=== PATIENT | male | born 1960 | race Hispanic/Latino ===

== ENCOUNTER 2019-02-06 19:35 | Emergency (ER) | payer OTHER ==
--- NOTE | 2019-02-06 20:04 | Emergency Department Report ---
Blank Doc - Documentation Documentation: This is a 58-year-old male that presents with chest pain with SOB. Stated feels like a crushing chest and tightness. HX of ND with similar symptoms. This initial assessment/diagnostic orders/clinical plan/treatment(s) is/are subject to change based on patient's health status, clinical progression and re- assessment by fellow clinical providers in the ED. Further treatment and workup at subsequent clinical providers discretion. Patient/guardians urged not to elope from the ED as their condition may be serious if not clinically assessed and managed. Initial orders include: 1- Patient sent to MAIN ED for further evaluation and treatment 2- EKG 3- labs 4- CXR
[2019-02-06 20:19] LABS: Basophils # (Auto) 0.1 K/mm3 (0.0-0.1); Basophils % (Auto) 1.4 % (0.0-1.8); Eosinophils # (Auto) 0.3 K/mm3 (0.0-0.4); Eosinophils % (Auto) 3.7 % (0.0-4.3); Hematocrit 46.1 % (35.5-45.6); Hemoglobin 16.1 gm/dl (11.8-15.2); Lymphocytes # (Auto) 1.9 K/mm3 (1.2-5.4); Lymphocytes % (Auto) 22.2 % (13.4-35.0); Mean Corpuscular HGB Conc 35 % (32-34); Mean Corpuscular Volume 89 fl (84-94); Monocytes % (Auto) 11.4 % (0.0-7.3); Platelet Count 295 K/mm3 (140-440); Red Blood Count 5.17 M/mm3 (3.65-5.03); Red Cell Distribution Width 13.7 % (13.2-15.2)
[2019-02-06 20:35] LABS: INR 0.97 (0.87-1.13)
[2019-02-06 20:36] LABS: Partial Thromboplastin Time 29.5 Sec. (24.2-36.6)
[2019-02-06 20:48] LABS: Alanine Aminotransferase 39 units/L (7-56); Albumin 3.9 g/dL (3.9-5); BUN/Creatinine Ratio 13; Blood Urea Nitrogen 10 mg/dL (9-20); Calcium 9.4 mg/dL (8.4-10.2); Hemolysis Index 19
--- NOTE | 2019-02-06 21:20 | XRay Report ---
PROCEDURE: XR CHEST ROUTINE 2V TECHNIQUE: PA and lateral views of the chest HISTORY: Chest Pain COMPARISONS: Chest x-ray dated October 28, 2018 FINDINGS: There is prominence of the interstitial markings in both lungs with peribronchial thickening similar in appearance to the previous study. There is no evidence of focal infiltrate, pneumothorax or pleural fluid collection. There is a stable appearance of a probable small calcified granuloma in the right upper lung field. The cardiac silhouette is normal size. The thoracic aorta is mildly tortuous. The bony structures are notable for dextrocurvature of the thoracic spine similar in appearance to th e previous study. IMPRESSION: 1. Prominence of the interstitial markings with peribronchial thickening that appears to be chronic a nd not significantly changed since the study of October 28, 2018. 2. No evidence of an acute pulmonary process. This document is electronically signed by Zaira Slaughter MD., February 06 2019 09:18:47 PM ET
[2019-02-07] MEDS ORDERED: HEPARIN 10,000 UNITS/10 ML IV ONE (01:09)
--- NOTE | 2019-02-07 01:17 | Emergency Department Report ---
ED General Adult HPI - General Chief complaint: Chest Pain Stated complaint: CHEST PAIN Time Seen by Provider: 02/06/19 20:02 Source: patient Mode of arrival: Ambulatory Limitations: No Limitations - History of Present Illness Initial comments: Patient presents to the emergency department with a chief complaint of intermittent chest pain for the last 3 months. The patient states at times the chest pain radiates into his left arm and describes it as pressure-like. Chest pain has become more prominent with exertion. The patient was seen at [facility] October for chest pain and was admitted and transferred to [facility] for open heart surgery. Upon arriving at [facility] the patient became restless and left AMA. -: Gradual Location: chest Radiation: extremity Severity scale (0 -10): 9 Quality: other (pressure) Consistency: intermittent Improves with: none Worsens with: other (exertion) Associated Symptoms: denies other symptoms Treatments Prior to Arrival: none - Related Data Previous Rx's Medication Instructions Recorded Last Taken Type Aspirin [Aspirin BABY CHEW TAB] 81 mg PO QDAY #30 tab.chew 12/25/14 10/23/18 Rx AtorvaSTATin [Lipitor] 40 mg PO QHS tablet 10/29/18 Unknown Rx Clopidogrel [Plavix] 75 mg PO QDAY tablet 10/29/18 Unknown Rx Enoxaparin [Lovenox] 40 mg SUB-Q QDAY@2200 syringe 10/29/18 Unknown Rx ISOSORBIDE MONOnitrate [Imdur ER] 30 mg PO QDAY tablet 10/29/18 Unknown Rx Lisinopril [Zestril TAB] 2.5 mg PO QDAY tablet 10/29/18 Unknown Rx Allergies Allergy/AdvReac Type Severity Reaction Status Date / Time No Known Allergies Allergy Verified 12/21/14 14:40 ED Review of Systems ROS: Stated complaint: CHEST PAIN Other details as noted in HPI Comment: All other systems reviewed and negative Constitutional: denies: chills, fever Eyes: denies: eye pain, eye discharge, vision change ENT: denies: ear pain, throat pain Respiratory: denies: cough, shortness of breath, wheezing Cardiovascular: denies: chest pain, palpitations Endocrine: no symptoms reported Gastrointestinal: denies: abdominal pain, nausea, diarrhea Genitourinary: denies: urgency, dysuria Musculoskeletal: denies: back pain, joint swelling, arthralgia Skin: denies: rash, lesions Neurological: denies: headache, weakness, paresthesias Psychiatric: denies: anxiety, depression Hematological/Lymphatic: denies: easy bleeding, easy bruising ED Past Medical Hx - Past Medical History Hx Heart Attack/AMI: Yes Hx Congestive Heart Failure: No Hx Diabetes: No Hx Asthma: No Hx COPD: No Additional medical history: [place] 2013 - Surgical History Hx Appendectomy: Yes - Social History Smoking Status: Current Every Day Smoker Substance Use Type: None - Medications Home Medications: Home Medications Medication Instructions Recorded Confirmed Last Taken Type Aspirin [Aspirin BABY CHEW TAB] 81 mg PO QDAY #30 tab.chew 12/25/14 10/24/18 10/23/18 Rx AtorvaSTATin [Lipitor] 40 mg PO QHS tablet 10/29/18 Unknown Rx Clopidogrel [Plavix] 75 mg PO QDAY tablet 10/29/18 Unknown Rx Enoxaparin [Lovenox] 40 mg SUB-Q QDAY@2200 syringe 10/29/18 Unknown Rx ISOSORBIDE MONOnitrate [Imdur ER] 30 mg PO QDAY tablet 10/29/18 Unknown Rx Lisinopril [Zestril TAB] 2.5 mg PO QDAY tablet 10/29/18 Unknown Rx ED Physical Exam - General Limitations: No Limitations General appearance: alert, in no apparent distress - Head Head exam: Present: atraumatic, normocephalic - Eye Eye exam: Present: normal appearance, PERRL, EOMI - ENT ENT exam: Present: mucous membranes moist - Neck Neck exam: Present: normal inspection - Respiratory Respiratory exam: Present: normal lung sounds bilaterally. Absent: respiratory distress, wheezes, rales, rhonchi - Cardiovascular Cardiovascular Exam: Present: regular rate, normal rhythm. Absent: systolic murmur, diastolic murmur, rubs, gallop - GI/Abdominal GI/Abdominal exam: Present: soft, normal bowel sounds. Absent: distended, tenderness - Rectal Rectal exam: Present: deferred - Extremities Exam Extremities exam: Present: normal inspection - Back Exam Back exam: Present: normal inspection - Neurological Exam Neurological exam: Present: alert, oriented X3, CN II-XII intact. Absent: motor sensory deficit - Psychiatric Psychiatric exam: Present: normal affect, normal mood - Skin Skin exam: Present: warm, dry, intact, normal color. Absent: rash ED Course Vital Signs 02/06/19 02/06/19 02/06/19 19:46 20:02 23:02 Temperature 97.6 F 97.6 F Pulse Rate 79 83 65 Respiratory 18 18 14 Rate Blood Pressure 112/77 112/77 O2 Sat by Pulse 95 95 Oximetry 02/06/19 02/06/19 02/06/19 23:16 23:30 23:46 Temperature Pulse Rate 60 60 76 Respiratory 19 16 19 Rate Blood Pressure 123/78 114/70 114/70 O2 Sat by Pulse 94 93 95 Oximetry ED Medical Decision Making - Lab Data Result diagrams: 02/06/19 20:06 02/06/19 20:06 Lab Results 02/06/19 02/06/19 02/06/19 Range/Units 20:06 20:06 20:06 WBC 8.7 (4.5-11.0) K/mm3 RBC 5.17 H (3.65-5.03) M/mm3 Hgb 16.1 H (11.8-15.2) gm/dl Hct 46.1 H (35.5-45.6) % MCV 89 (84-94) fl MCH 31 (28-32) pg MCHC 35 H (32-34) % RDW 13.7 (13.2-15.2) % Plt Count 295 (140-440) K/mm3 Lymph % (Auto) 22.2 (13.4-35.0) % [place] % (Auto) 11.4 H (0.0-7.3) % Eos % (Auto) 3.7 (0.0-4.3) % Baso % (Auto) 1.4 (0.0-1.8) % Lymph # 1.9 (1.2-5.4) K/mm3 [place] # 1.0 H (0.0-0.8) K/mm3 Eos # 0.3 (0.0-0.4) K/mm3 Baso # 0.1 (0.0-0.1) K/mm3 Seg Neutrophils % 61.3 (40.0-70.0) % Seg Neutrophils # 5.3 (1.8-7.7) K/mm3 PT 13.5 (12.2-14.9) Sec. INR 0.97 (0.87-1.13) APTT 29.5 (24.2-36.6) Sec. Sodium 135 L (137-145) mmol/L Potassium 4.0 (3.6-5.0) mmol/L Chloride 102.0 (98-107) mmol/L Carbon Dioxide 21 L (22-30) mmol/L Anion Gap 16 mmol/L BUN 10 (9-20) mg/dL Creatinine 0.8 (0.8-1.5) mg/dL Estimated GFR > 60 ml/min BUN/Creatinine Ratio 13 % Glucose 101 H (75-100) mg/dL Calcium 9.4 (8.4-10.2) mg/dL Total Bilirubin 0.90 (0.1-1.2) mg/dL AST 31 (5-40) units/L ALT 39 (7-56) units/L Alkaline Phosphatase 62 (35-129) units/L Troponin T < 0.010 (0.00-0.029) ng/mL Total Protein 7.6 (6.3-8.2) g/dL Albumin 3.9 (3.9-5) g/dL Albumin/Globulin Ratio 1.1 % // Range/Units 22:51 WBC (4.5-11.0) K/mm3 RBC (3.65-5.03) M/mm3 Hgb (11.8-15.2) gm/dl Hct (35.5-45.6) % MCV (84-94) fl MCH (28-32) pg MCHC (32-34) % RDW (13.2-15.2) % Plt Count (140-440) K/mm3 Lymph % (Auto) (13.4-35.0) % [place] % (Auto) (0.0-7.3) % Eos % (Auto) (0.0-4.3) % Baso % (Auto) (0.0-1.8) % Lymph # (1.2-5.4) K/mm3 [place] # (0.0-0.8) K/mm3 Eos # (0.0-0.4) K/mm3 Baso # (0.0-0.1) K/mm3 Seg Neutrophils % (40.0-70.0) % Seg Neutrophils # (1.8-7.7) K/mm3 PT (12.2-14.9) Sec. INR (0.87-1.13) APTT (24.2-36.6) Sec. Sodium (137-145) mmol/L Potassium (3.6-5.0) mmol/L Chloride (98-107) mmol/L Carbon Dioxide (22-30) mmol/L Anion Gap mmol/L BUN (9-20) mg/dL Creatinine (0.8-1.5) mg/dL Estimated GFR ml/min BUN/Creatinine Ratio % Glucose (75-100) mg/dL Calcium (8.4-10.2) mg/dL Total Bilirubin (0.1-1.2) mg/dL AST (5-40) units/L ALT (7-56) units/L Alkaline Phosphatase (35-129) units/L Troponin T < 0.010 (0.00-0.029) ng/mL Total Protein (6.3-8.2) g/dL Albumin (3.9-5) g/dL Albumin/Globulin Ratio % - EKG Data -: EKG Interpreted by Dc EKG shows normal: sinus rhythm Rate: normal - EKG Data 02/07/19 01:[address] depression of the lateral leads patient did have some ST depressions in lateral leads in October as well - Radiology Data Radiology results: [place] [address] XRay Report Signed Patient: HALI AGUILERA MR#: [id number] 38 : 1960 Acct:[id number] Age/Sex: 58 / M ADM Date: 02/06/19 Loc: ED Attending Dr: Ordering Physician: ERNESTO BEST NP Date of Service: 02/06/19 Procedure(s): XR chest routine 2V Accession Number(s): [id number] cc: ERNESTO BEST NP Fluoro Time In Minutes: PROCEDURE: XR CHEST ROUTINE 2V TECHNIQUE: PA and lateral views of the chest HISTORY: Chest Pain COMPARISONS: Chest x-ray dated October 28, 2018 FINDINGS: There is prominence of the interstitial markings in both lungs with peribronchial thickening similar in appearance to the previous study. There is no evidence of focal infiltrate, pneumothorax or pleural fluid collection. There is a stable appearance of a probable small calcified granuloma in the right upper lung field. The cardiac silhouette is normal size. The thoracic aorta is mildly tortuous. The bony structures are notable for dextrocurvature of the thoracic spine similar in appearance to the previous study. IMPRESSION: 1. Prominence of the interstitial markings with peribronchial thickening that appears to be chronic and not significantly changed since the study of October 28, 2018. 2. No evidence of an acute pulmonary process. This document is electronically signed by Zaira Slaughter MD., February 06 2019 09:18:47 PM ET Transcribed By: ED Dictated By: ZAIRA SLAUGHTER MD Electronically Authenticated By: ZAIRA SLAUGHTER MD Signed Date/Time: 02/06/192119 DD/ 27 TD/TT: 02/06/192027 - Medical Decision Making Catheterization report review shows multi vessel coronary artery disease with an ejection fraction of 20-25% Discussed results with the patient Patient placed on heparin drip Initially attempted to admit the patient to the hospitalist service at this hospital assisted patient has pre-existing coronary artery disease and was being evaluated by CT surgery for open heart surgery it was discussed that the patient should be transferred back to the facility where his CT surgery was being planned. At this time I contacted [facility] and patient was accepted via Critical Care Time: Yes Critical care time in (mins) excluding proc time.: 45 Critical care attestation.: If time is entered above; I have spent that time in minutes in the direct care of this critically ill patient, excluding procedure time. ED Disposition Clinical Impression: Chest pain Disposition: DC/TX-70 ANOTHER TYPE HLTHCARE Is pt being admited?: No Does the pt Need Aspirin: Yes Condition: Stable Instructions: Chest Pain (ED) Referrals: AUGIE SOLIS MD [Primary Care Provider] - 3-5 Days
[2019-02-07] MEDS ORDERED: BABY ASPIRIN PO ONE (01:20)
[2019-02-07 01:44] LABS: Hematocrit 44.7 % (35.5-45.6); Hemoglobin 15.3 gm/dl (11.8-15.2)
[2019-02-07] MEDS ORDERED: HEPARIN/ 0.45% NACL-25,000 UNIT/500 ML 25,000 UNIT/500 ML BAG IV SCH (02:00)
[2019-02-07 02:05] LABS: Partial Thromboplastin Time 29.6 Sec. (24.2-36.6)
[2019-02-07 02:15] VITALS: BP 133/90
== END 2019-02-07 03:01 | disposition other institution (70) ==
LOC: ED 19:35
DX: R07.89 Other chest pain (principal); I25.2 Old myocardial infarction; F17.200 Nicotine dependence, unspecified, uncomplicated; Z90.89 Acquired absence of other organs
CPT/HCPCS: 36415; 71046; 80053; 84484; 85014; 85018; 85025; 85049; 85610; 85730; 93005; 93010; 96374; 99291; J1644

== ENCOUNTER 2019-04-21 16:58 | Inpatient (IN) | payer OTHER ==
[2019-04-21] MEDS ORDERED: ASPIRIN PO ONE (17:04)
[2019-04-21 17:56] LABS: Basophils # (Auto) 0.1 K/mm3 (0.0-0.1); Basophils % (Auto) 0.9 % (0.0-1.8); Eosinophils # (Auto) 0.5 K/mm3 (0.0-0.4); Eosinophils % (Auto) 4.9 % (0.0-4.3); Hemoglobin 14.1 gm/dl (11.8-15.2); Lymphocytes # (Auto) 3.3 K/mm3 (1.2-5.4); Lymphocytes % (Auto) 35.7 % (13.4-35.0); Mean Corpuscular HGB Conc 33 % (32-34); Mean Corpuscular Volume 90 fl (84-94); Monocytes # (Auto) 1.1 K/mm3 (0.0-0.8); Monocytes % (Auto) 11.9 % (0.0-7.3); Platelet Count 335 K/mm3 (140-440); Red Cell Distribution Width 18.6 % (13.2-15.2)
[2019-04-21 18:05] LABS: BUN/Creatinine Ratio 13; Blood Urea Nitrogen 9 mg/dL (9-20); Calcium 10.1 mg/dL (8.4-10.2); Hemolysis Index 12
[2019-04-21] MEDS ORDERED: NITRO-BID 2% TP ONE (18:23)
--- NOTE | 2019-04-21 19:00 | XRay Report ---
PROCEDURE: XR CHEST 1V AP TECHNIQUE: Chest radiograph single view. HISTORY: Chest Pain COMPARISONS: Prior chest x-ray 02/06/2019 . FINDINGS: Heart: Normal size. Mediastinum/Vessels: Normal. Sternotomy wires are now visualized. There has been interval thoracotomy . Lungs/Pleural space: Calcified granulomas suspected right upper lung field. This is seen in the prio r study.. Bony thorax: No acute osseous abnormality. There is mild blunting of the right and left lateral costo phrenic angle suggesting minimal effusions or pleural thickening. No dense consolidations are seen. N o evidence of pneumothorax. Life support devices: None. IMPRESSION: Interval thoracotomy. Prior granulomatous disease. Minimal blunting lateral costophrenic angles as described above. Lungs otherwise are clear.. This document is electronically signed by Alejandro Dhillon MD., April 21 2019 06:58:57 PM ET
[2019-04-21 19:19] LABS: INR 1.05 (0.87-1.13)
[2019-04-21 19:20] LABS: Partial Thromboplastin Time 30.5 Sec. (24.2-36.6)
[2019-04-21] MEDS ORDERED: ASPIRIN ONE (19:42)
--- NOTE | 2019-04-21 19:52 | Emergency Department Report ---
ED Chest Pain HPI - General Chief Complaint: Chest Pain Stated Complaint: CHEST PAIN/VOMIT BLOOD Time Seen by Provider: 04/21/19 17:52 Source: patient, RN notes reviewed, old records reviewed Mode of arrival: Ambulatory Limitations: No Limitations - History of Present Illness Initial Comments: 58-year-old male with a past medical history of CABG 4 in January, cardiac stent, hypertension, ischemic cardiomyopathy with EF of 25-30%, and continue smoking/ tobacco use presents to the hospital with complaints of chest pain and coughing of blood (denies vomiting blood). Patient was seen here in January and emergently was transferred to [place] for CABG for significant CAD. Patient states when his medications ran out he did not have any more refills and has not had any medications for the last 6-8 weeks. He has taken aspirin 81 mg daily. 2 weeks ago he reports that he had a set of onset of chest pain similar to his previous heart attacks. Pain resolved the next day so he did not come to the hospital. For the past week he has had intermittent chest pain and and has had several episodes of hemoptysis since yesterday. Patient also has not followed up with a radiology clerk or primary care doctor as directed since he was last seen by the cardiothoracic surgeon. Patient has been seen by [facility] here in the past. Severity scale (0 -10): 9 - Related Data Home Medications Medication Instructions Recorded Confirmed Last Taken No Known Home Medications [No 04/21/19 04/21/19 Unknown Reported Home Medications] Allergies Allergy/AdvReac Type Severity Reaction Status Date / Time No Known Allergies Allergy Verified 04/21/19 17:04 Heart Score - HEART Score History: Slightly suspicious EKG: Non-specific Age: 45-65 Risk factors: > 3 risk factors or hx of atherosclerotic disease Troponin: < normal limit HEART Score: 4 ED Review of Systems ROS: Stated complaint: CHEST PAIN/VOMIT BLOOD Other details as noted in HPI Comment: All other systems reviewed and negative ED Past Medical Hx - Past Medical History Hx Heart Attack/AMI: Yes Hx Congestive Heart Failure: No Hx Diabetes: No Hx Asthma: No Hx COPD: No Additional medical history: [place] 2013 - Surgical History Hx Appendectomy: Yes - Social History Smoking Status: Current Every Day Smoker Substance Use Type: None - Medications Home Medications: Home Medications Medication Instructions Recorded Confirmed Last Taken Type No Known Home Medications [No 04/21/19 04/21/19 Unknown History Reported Home Medications] ED Physical Exam - General Limitations: No Limitations - Other Other exam information: General: No limitations, patient is alert in no acute distress Head exam: Atraumatic, normocephalic Eyes exam: Normal appearance ENT: Moist mucous membrane, normal oropharynx Neck exam: Normal inspection, full range of motion, no meningismus nontender Respiratory exam: Clear to auscultation bilateral, no wheezes, rales, crackles, sternotomy scar Cardiovascular: Normal rate and rhythm Abdomen: Soft, nondistended, and nontender, with normal bowel sounds, no rebound, or guarding Extremity: Full range of motion normal inspection no deformity Back: Normal Inspection, full range of motion, no tenderness Neurologic: Alert, oriented x3, cranial nerves intact, no motor or sensory deficit Psychiatric: normal affect, normal mood Skin: Warm, dry, intact ED Course Vital Signs 04/21/19 04/21/19 04/21/19 17:03 18:28 18:30 Temperature 98.2 F Pulse Rate 102 H 84 81 Respiratory 20 14 16 Rate Blood Pressure 180/112 158/104 158/104 Blood Pressure [Left] O2 Sat by Pulse 93 98 Oximetry 04/21/19 04/21/19 04/21/19 18:36 18:43 18:45 Temperature 98.1 F Pulse Rate 83 80 79 Respiratory 15 15 16 Rate Blood Pressure 158/104 Blood Pressure 166/94 [Left] O2 Sat by Pulse 98 98 97 Oximetry 04/21/19 04/21/19 04/21/19 18:46 18:51 18:55 Temperature Pulse Rate 75 81 Respiratory 18 16 19 Rate Blood Pressure 166/97 Blood Pressure [Left] O2 Sat by Pulse 98 97 96 Oximetry 04/21/19 04/21/19 04/21/19 19:01 19:05 19:11 Temperature Pulse Rate 81 84 76 Respiratory 14 20 15 Rate Blood Pressure 166/97 166/97 152/98 Blood Pressure [Left] O2 Sat by Pulse 97 97 98 Oximetry 04/21/19 04/21/19 04/21/19 19:15 19:33 19:35 Temperature Pulse Rate 78 91 H 86 Respiratory 18 16 35 H Rate Blood Pressure 152/98 152/98 152/98 Blood Pressure [Left] O2 Sat by Pulse 98 99 99 Oximetry 04/21/19 04/21/19 04/21/19 19:41 19:45 19:51 Temperature Pulse Rate 83 86 91 H Respiratory 32 H 38 H 35 H Rate Blood Pressure 148/101 148/101 148/101 Blood Pressure [Left] O2 Sat by Pulse 96 98 96 Oximetry 04/21/19 04/21/19 04/21/19 19:55 20:01 20:05 Temperature Pulse Rate 85 82 88 Respiratory 34 H 27 H 31 H Rate Blood Pressure 155/96 155/96 155/96 Blood Pressure [Left] O2 Sat by Pulse 97 96 97 Oximetry 04/21/19 20:11 Temperature Pulse Rate 85 Respiratory 25 H Rate Blood Pressure 152/98 Blood Pressure [Left] O2 Sat by Pulse 96 Oximetry CRISSY score - Crissy Score Age > 65: (0) No Aspirin use within the Past 7 Days: (1) Yes 3 or more CAD Risk Factors: (1) Yes 2 or more Angina events in past 24 hrs: (0) No Known CAD with more than 50% Stenosis: (1) Yes Elevated Cardiac Markers: (0) No ST Deviation Greater than 0.5mm: (0) No CRISSY Score: 3 ED Medical Decision Making - Lab Data Result diagrams: 04/21/19 17:07 04/21/19 17:07 Lab Results 04/21/19 04/21/19 04/21/19 Range/Units 17:07 17:07 18:20 WBC 9.3 (4.5-11.0) K/mm3 RBC 4.80 (3.65-5.03) M/mm3 Hgb 14.1 (11.8-15.2) gm/dl Hct 43.0 (35.5-45.6) % MCV 90 (84-94) fl MCH 29 (28-32) pg MCHC 33 (32-34) % RDW 18.6 H (13.2-15.2) % Plt Count 335 (140-440) K/mm3 Lymph % (Auto) 35.7 H (13.4-35.0) % [place] % (Auto) 11.9 H (0.0-7.3) % Eos % (Auto) 4.9 H (0.0-4.3) % Baso % (Auto) 0.9 (0.0-1.8) % Lymph # 3.3 (1.2-5.4) K/mm3 [place] # 1.1 H (0.0-0.8) K/mm3 Eos # 0.5 H (0.0-0.4) K/mm3 Baso # 0.1 (0.0-0.1) K/mm3 Seg Neutrophils % 46.6 (40.0-70.0) % Seg Neutrophils # 4.4 (1.8-7.7) K/mm3 PT 14.3 (12.2-14.9) Sec. INR 1.05 (0.87-1.13) APTT 30.5 (24.2-36.6) Sec. Sodium 139 (137-145) mmol/L Potassium 4.1 (3.6-5.0) mmol/L Chloride 100.3 (98-107) mmol/L Carbon Dioxide 24 (22-30) mmol/L Anion Gap 19 mmol/L BUN 9 (9-20) mg/dL Creatinine 0.7 L (0.8-1.5) mg/dL Estimated GFR > 60 ml/min BUN/Creatinine Ratio 13 % Glucose 138 H (75-100) mg/dL Calcium 10.1 (8.4-10.2) mg/dL Troponin T < 0.010 (0.00-0.029) ng/mL 04/21/19 Range/Units 19:45 WBC (4.5-11.0) K/mm3 RBC (3.65-5.03) M/mm3 Hgb (11.8-15.2) gm/dl Hct (35.5-45.6) % MCV (84-94) fl MCH (28-32) pg MCHC (32-34) % RDW (13.2-15.2) % Plt Count (140-440) K/mm3 Lymph % (Auto) (13.4-35.0) % [place] % (Auto) (0.0-7.3) % Eos % (Auto) (0.0-4.3) % Baso % (Auto) (0.0-1.8) % Lymph # (1.2-5.4) K/mm3 [place] # (0.0-0.8) K/mm3 Eos # (0.0-0.4) K/mm3 Baso # (0.0-0.1) K/mm3 Seg Neutrophils % (40.0-70.0) % Seg Neutrophils # (1.8-7.7) K/mm3 PT (12.2-14.9) Sec. INR (0.87-1.13) APTT (24.2-36.6) Sec. Sodium (137-145) mmol/L Potassium (3.6-5.0) mmol/L Chloride (98-107) mmol/L Carbon Dioxide (22-30) mmol/L Anion Gap mmol/L BUN (9-20) mg/dL Creatinine (0.8-1.5) mg/dL Estimated GFR ml/min BUN/Creatinine Ratio % Glucose (75-100) mg/dL Calcium (8.4-10.2) mg/dL Troponin T < 0.010 (0.00-0.029) ng/mL - EKG Data -: EKG Interpreted by N[facility] EKG shows normal: sinus rhythm, axis (qrs 52), QRS complexes (qrsd 94 ), ST-T waves (no stemi) Rate: normal (88) - EKG Data When compared to previous EKG there are: no significant change - Radiology Data Radiology results: report reviewed PROCEDURE: CT ANGIO CHEST TECHNIQUE: Computerized tomographic angiography of the chest was performed after the IV injection of iodinated nonionic contrast including image processing. The image data was postprocessed using 2-dimensional multiplanar reformatted (MPR) and 3-dimensional (MIP and/or volume rendered) techniques. Automated exposure control, adjustment of mA and/or kV according to patient size, or iterative reconstruction dose optimization techniques were utilized. CT DOSE LENGTH PRODUCT: 538.3 mGycm HISTORY: cp, coughing up blood, cabg 12 wks ago COMPARISONS: None . FINDINGS: Contrast-enhanced CT angiography of the chest was performed following the intravenous administration of iodinated contrast. Sagittal and coronal MIP three-dimensional reformatted images were generated. These images demonstrate no CT evidence of pulmonary thromboembolic disease. There is no aortic dissection. There is cardiomegaly. Sternal wires attest prior sternotomy. There is some stranding and trace fluid posterior to the upper sternum which is likely postprocedural. No loculated fluid collection is seen. There is a small right pleural effusion. There is mild COPD. There is no acute consolidative pulmonary infiltrate. There is a right upper lobe calcified granuloma. In the upper abdomen the adrenal glands are within normal limits. IMPRESSION: No CT evidence of pulmonary thromboembolic disease PROCEDURE: XR CHEST 1V AP TECHNIQUE: Chest radiograph single view. HISTORY: Chest Pain COMPARISONS: Prior chest x-ray 02/06/2019 . FINDINGS: Heart: Normal size. Mediastinum/Vessels: Normal. Sternotomy wires are now visualized. There has been interval thoracotomy. Lungs/Pleural space: Calcified granulomas suspected right upper lung field. This is seen in the prior study.. Bony thorax: No acute osseous abnormality. There is mild blunting of the right and left lateral costophrenic angle suggesting minimal effusions or pleural thickening. No dense consolidations are seen. No evidence of pneumothorax. Life support devices: None. IMPRESSION: Interval thoracotomy. Prior granulomatous disease. Minimal blunting lateral costophrenic angles as described above. Lungs otherwise are clear.. - Medical Decision Making bp improving with ntg paste asa not provided given complaint of hemoptysis trop neg x2 with unchanged ekg ct angio chest without acute findings plan to admit for further eval - Differential Diagnosis mi, unstable angina, coagulopathy, PE, pneumonia, bronchitis Critical Care Time: No Critical care attestation.: If time is entered above; I have spent that time in minutes in the direct care of this critically ill patient, excluding procedure time. ED Disposition Clinical Impression: Chest pain, Hemoptysis, Nonadherence to medication, S/P CABG x 4, H/O heart artery stent, HTN (hypertension), Tobacco dependence Disposition: OP ADMIT IP TO THIS HOSP Is pt being admited?: Yes Condition: Stable Time of Disposition: 21:06 (hospitalist)
--- NOTE | 2019-04-21 20:10 | Cat Scan Report ---
PROCEDURE: CT ANGIO CHEST TECHNIQUE: Computerized tomographic angiography of the chest was performed after the IV injection of iodinated nonionic contrast including image processing. The image data was postprocessed using 2-di mensional multiplanar reformatted (MPR) and 3-dimensional (MIP and/or volume rendered) techniques. Au tomated exposure control, adjustment of mA and/or kV according to patient size, or iterative reconstr uction dose optimization techniques were utilized. CT DOSE LENGTH PRODUCT: 538.3 mGycm HISTORY: cp, coughing up blood, cabg 12 wks ago COMPARISONS: None . FINDINGS: Contrast-enhanced CT angiography of the chest was performed following the intravenous admin istration of iodinated contrast. Sagittal and coronal MIP three-dimensional reformatted images were g enerated. These images demonstrate no CT evidence of pulmonary thromboembolic disease. There is no aortic disse ction. There is cardiomegaly. Sternal wires attest prior sternotomy. There is some stranding and trace fluid posterior to the upper sternum which is likely postprocedural. No loculated fluid collection is seen . There is a small right pleural effusion. There is mild COPD. There is no acute consolidative pulmonar y infiltrate. There is a right upper lobe calcified granuloma. In the upper abdomen the adrenal glands are within normal limits. IMPRESSION: No CT evidence of pulmonary thromboembolic disease This document is electronically signed by Basil Martin MD., April 21 2019 08:08:29 PM ET
[2019-04-21] MEDS ORDERED: ZOFRAN IV PRN (21:08)
[2019-04-21] MEDS ORDERED: SODIUM CHLORIDE FLUSH SYRINGE 10 ML IV PRN (21:08)
[2019-04-21] MEDS ORDERED: AMBIEN PO PRN (21:08)
[2019-04-21] MEDS ORDERED: PROVENTIL IH PRN (21:08)
[2019-04-21] MEDS ORDERED: TYLENOL PO PRN (21:08)
[2019-04-21] MEDS ORDERED: MORPHINE IV PRN (21:08)
--- NOTE | 2019-04-21 21:17 | History and Physical Report ---
<KIM SANCHEZ - Last Filed: 04/22/19 05:06> History of Present Illness Date of examination: 04/21/19 Date of admission: 12/22/18 Chief complaint: Chest pain, hemptosis History of present illness: Pt is a 58-year-old male with PMHx of CABG 4 in January, cardiac stent, hypertension, CHF, ischemic cardiomyopathy (EF of 25-30%), current every day tobacco use disorder, who presents to the ER with complaints of chest pain and coughing of blood (denies vomiting blood). Patient had CABG in January. Please continue with multiple systems disease, he was transferred to [facility] for urgent revascularization surgery. Patient complained of chest pain with deep breathing and coughing, Complaints hemoptysis, he denies taking any anticoagula nt, he was prescribed plavix at discharge but states that he had not brought the medications for 6-8 weeks. States he has not followed up with cardiology, he denies any bruising or ecchymosis, he denies fevers, denies chills, denies night sweats, denies cough, denied exposure to large crowd, denies recent travel patient is a CT scan of the chest which was negative he was admitted for further management. Past History Past Medical History: CAD Past Surgical History: CABG Social history: single, smoking Family history: no significant family history Medications and Allergies Allergies Allergy/AdvReac Type Severity Reaction Status Date / Time No Known Allergies Allergy Verified 04/21/19 17:04 Home Medications Medication Instructions Recorded Confirmed Last Taken Type No Known Home Medications [No 04/21/19 04/21/19 Unknown History Reported Home Medications] Active Meds: Active Medications Acetaminophen (Tylenol) 650 mg PO Q4H PRN PRN Reason: Pain MILD(1-3)/Fever >100.5/VELEZ Albuterol (Proventil) 2.5 mg IH Q3HRT PRN PRN Reason: Shortness Of Breath Sodium Chloride (Nacl 0.9% 1000 Ml) 1,000 mls @ 42 mls/hr IV DIRECT [facility] Morphine Sulfate (Morphine) 2 mg IV Q4H PRN PRN Reason: Pain, Moderate (4-6) Ondansetron HCl (Zofran) 4 mg IV Q8H PRN PRN Reason: Nausea And Vomiting Sodium Chloride (Sodium Chloride Flush Syringe 10 Ml) 10 ml IV BID [facility] Sodium Chloride (Sodium Chloride Flush Syringe 10 Ml) 10 ml IV PRN PRN PRN Reason: LINE FLUSH Zolpidem Tartrate (Ambien) 5 mg PO QHS PRN PRN Reason: Insomnia Exam - Constitutional Vitals: Temp Pulse Resp BP Pulse Ox 98.1 F 85 25 H 152/98 96 04/21/19 18:45 04/21/19 20:11 04/21/19 20:11 04/21/19 20:11 04/21/19 20:11 General appearance: Present: no acute distress - EENT Eyes: Present: PERRL, EOM intact ENT: hearing intact - Neck Neck: Present: normal ROM - Respiratory Respiratory effort: normal Respiratory: bilateral: CTA - Cardiovascular Rhythm: regular - Extremities Extremities: no ischemia, No edema Peripheral Pulses: within normal limits - Abdominal General gastrointestinal: Present: deferred Male genitourinary: Present: deferred - Rectal Rectal Exam: deferred - Integumentary Integumentary: Present: warm, dry - Musculoskeletal Musculoskeletal: strength equal bilaterally - Psychiatric Psychiatric: cooperative - Neurologic Neurologic: moves all extremities Results - Labs CBC & Chem 7: 04/21/19 17:07 04/21/19 17:07 Labs: Laboratory Last Values WBC 9.3 K/mm3 (4.5-11.0) 04/21/19 17:07 RBC 4.80 M/mm3 (3.65-5.03) 04/21/19 17:07 Hgb 14.1 gm/dl (11.8-15.2) 04/21/19 17:07 Hct 43.0 % (35.5-45.6) 04/21/19 17:07 MCV 90 fl (84-94) 04/21/19 17:07 MCH 29 pg (28-32) 04/21/19 17:07 MCHC 33 % (32-34) 04/21/19 17:07 RDW 18.6 % (13.2-15.2) H 04/21/19 17:07 Plt Count 335 K/mm3 (140-440) 04/21/19 17:07 Lymph % (Auto) 35.7 % (13.4-35.0) H 04/21/19 17:07 [place] % (Auto) 11.9 % (0.0-7.3) H 04/21/19 17:07 Eos % (Auto) 4.9 % (0.0-4.3) H 04/21/19 17:07 Baso % (Auto) 0.9 % (0.0-1.8) 04/21/19 17:07 Lymph # 3.3 K/mm3 (1.2-5.4) 04/21/19 17:07 [place] # 1.1 K/mm3 (0.0-0.8) H 04/21/19 17:07 Eos # 0.5 K/mm3 (0.0-0.4) H 04/21/19 17:07 Baso # 0.1 K/mm3 (0.0-0.1) 04/21/19 17:07 Seg Neutrophils % 46.6 % (40.0-70.0) 04/21/19 17:07 Seg Neutrophils # 4.4 K/mm3 (1.8-7.7) 04/21/19 17:07 PT 14.3 Sec. (12.2-14.9) 04/21/19 18:20 INR 1.05 (0.87-1.13) 04/21/19 18:20 APTT 30.5 Sec. (24.2-36.6) 04/21/19 18:20 Sodium 139 mmol/L (137-145) 04/21/19 17:07 Potassium 4.1 mmol/L (3.6-5.0) 04/21/19 17:07 Chloride 100.3 mmol/L (98-107) 04/21/19 17:07 Carbon Dioxide 24 mmol/L (22-30) 04/21/19 17:07 19 mmol/L 04/21/19 17:07 BUN 9 mg/dL (9-20) 04/21/19 17:07 0.7 mg/dL (0.8-1.5) L 04/21/19 17:07 Estimated GFR > 60 ml/min 04/21/19 17:07 13 % 04/21/19 17:07 Glucose 138 mg/dL (75-100) H 04/21/19 17:07 Calcium 10.1 mg/dL (8.4-10.2) 04/21/19 17:07 < 0.010 ng/mL (0.00-0.029) 04/21/19 19:45 Assessment and Plan Assessment and plan: 1. Acute hemoptysis 2. Small pleural effusion 3. COPD 4. Tobacco use disorder 5. Right upper lobe calcified granuloma (r/o TB) 6. CAD status post CABG 7. Hyperlipidemia 8. Hypertension 9. Noncompliant with medical treatment Plan: Patient is at the [facility] for acute hemoptysis Place in droplet isolation to rule out TB Consults infectious diseases Consult pulmonary for possible bronchoscopy AFB 3 to r/o TB Place PPD now H&H every 8 hours 3 Further plan per hospital course Advance Directives: Yes Contraindication Mechanical VTE Prophylaxis: Contraindicated Plan of care discussed with patient/family: Yes <MARTHA BOWEN - Last Filed: 04/22/19 06:02> History of Present Illness Date of admission: 04/21/19 21:09 Medications and Allergies Active Meds: Active Medications Acetaminophen (Tylenol) 650 mg PO Q4H PRN PRN Reason: Pain MILD(1-3)/Fever >100.5/VELEZ Albuterol (Proventil) 2.5 mg IH Q3HRT PRN PRN Reason: Shortness Of Breath Sodium Chloride (Nacl 0.9% 1000 Ml) 1,000 mls @ 42 mls/hr IV DIRECT [facility] Last Admin: 04/22/19 01:03 Dose: 42 mls/hr Documented by: Morphine Sulfate (Morphine) 2 mg IV Q4H PRN PRN Reason: Pain, Moderate (4-6) Ondansetron HCl (Zofran) 4 mg IV Q8H PRN PRN Reason: Nausea And Vomiting Pantoprazole Sodium (Protonix) 40 mg IV BID [facility] Sodium Chloride (Sodium Chloride Flush Syringe 10 Ml) 10 ml IV BID [facility] Last Admin: 04/21/19 21:44 Dose: 10 ml Documented by: Sodium Chloride (Sodium Chloride Flush Syringe 10 Ml) 10 ml IV PRN PRN PRN Reason: LINE FLUSH Zolpidem Tartrate (Ambien) 5 mg PO QHS PRN PRN Reason: Insomnia Last Admin: 04/22/19 01:03 Dose: 5 mg Documented by: Exam - Constitutional Vitals: Temp Pulse Resp BP Pulse Ox 98.4 F 90 16 167/107 95 04/22/19 04:42 04/22/19 04:42 04/22/19 04:42 04/22/19 04:42 04/22/19 04:42 Results - Labs CBC & Chem 7: 04/21/19 17:07 04/21/19 17:07 Labs: Laboratory Last Values WBC 9.3 K/mm3 (4.5-11.0) 04/21/19 17:07 RBC 4.80 M/mm3 (3.65-5.03) 04/21/19 17:07 Hgb 14.1 gm/dl (11.8-15.2) 04/21/19 17:07 Hct 43.0 % (35.5-45.6) 04/21/19 17:07 MCV 90 fl (84-94) 04/21/19 17:07 MCH 29 pg (28-32) 04/21/19 17:07 MCHC 33 % (32-34) 04/21/19 17:07 RDW 18.6 % (13.2-15.2) H 04/21/19 17:07 Plt Count 335 K/mm3 (140-440) 04/21/19 17:07 Lymph % (Auto) 35.7 % (13.4-35.0) H 04/21/19 17:07 [place] % (Auto) 11.9 % (0.0-7.3) H 04/21/19 17:07 Eos % (Auto) 4.9 % (0.0-4.3) H 04/21/19 17:07 Baso % (Auto) 0.9 % (0.0-1.8) 04/21/19 17:07 Lymph # 3.3 K/mm3 (1.2-5.4) 04/21/19 17:07 [place] # 1.1 K/mm3 (0.0-0.8) H 04/21/19 17:07 Eos # 0.5 K/mm3 (0.0-0.4) H 04/21/19 17:07 Baso # 0.1 K/mm3 (0.0-0.1) 04/21/19 17:07 Seg Neutrophils % 46.6 % (40.0-70.0) 04/21/19 17:07 Seg Neutrophils # 4.4 K/mm3 (1.8-7.7) 04/21/19 17:07 PT 14.3 Sec. (12.2-14.9) 04/21/19 18:20 INR 1.05 (0.87-1.13) 04/21/19 18:20 APTT 30.5 Sec. (24.2-36.6) 04/21/19 18:20 Sodium 139 mmol/L (137-145) 04/21/19 17:07 Potassium 4.1 mmol/L (3.6-5.0) 04/21/19 17:07 Chloride 100.3 mmol/L (98-107) 04/21/19 17:07 Carbon Dioxide 24 mmol/L (22-30) 04/21/19 17:07 19 mmol/L 04/21/19 17:07 BUN 9 mg/dL (9-20) 04/21/19 17:07 0.7 mg/dL (0.8-1.5) L 04/21/19 17:07 Estimated GFR > 60 ml/min 04/21/19 17:07 13 % 04/21/19 17:07 Glucose 138 mg/dL (75-100) H 04/21/19 17:07 Calcium 10.1 mg/dL (8.4-10.2) 04/21/19 17:07 < 0.010 ng/mL (0.00-0.029) 04/21/19 23:04 Assessment and Plan Assessment and plan: I saw and evaluated the patient. I agree with the findings and the plan of care as documented in the Nurse Practitioner's~note, with the following corrections and additions. ID consulted. Imagaing reviewed myself, do not see the referenced granuloma but will defer to ID for management. Discussed also with patient and Nursing staff.
[2019-04-21] MEDS: SODIUM CHLORIDE FLUSH SYRINGE 10 ML IV SCH (21:44)
[2019-04-22] MEDS: NACL 0.9% 1000 ML 1,000 ML IV SCH (01:03)
[2019-04-22 06:40] LABS: Hematocrit 38.5 % (35.5-45.6); Hemoglobin 12.9 gm/dl (11.8-15.2)
[2019-04-22] MEDS: PROTONIX IV SCH (09:23)
[2019-04-22] MEDS: SODIUM CHLORIDE FLUSH SYRINGE 10 ML IV SCH (09:24)
--- NOTE | 2019-04-22 12:02 | Consultation ---
History of Present Illness Consult date: 04/22/19 Consult reason: chest pain History of present illness: Mr Worrell is a 58 year old man with a history of ischemic cardiomyopathy and coronary artery disease. 6 months ago he was found to have multi-vessel coronary artery disease by cardiac catheterization. Patient was recommended for CT surgery evaluation, transferred to [facility] but the patient left AMA before he was seen by the surgeon. He returned to this hospital 2 months with chest pain and transferred to [facility] from the emergency department. Ultimately the patient underwent 5 way coronary bypass grafting. Since his discharge, patient has not followed with a reservation agent, ran out of his medications and he continues to smoke. Patient returns to this hospital with reports of shortness of breath, coughs, hemoptysis and mild chest discomfort. Chest pain is musculoskeletal, worse with coughs and deep breathing. A chest x-ray reports suspected calcified granulomas of the right upper lobe. No evidence of PE by chest CTA. His ECG is sinus rhyth, LVH with non-specific Twave abnormalities. A cardiac consultation has been requested for chest pain evaluation. Past History Past Medical History: CAD Past Surgical History: CABG Social history: single, smoking Family history: no significant family history Medications and Allergies Allergies Allergy/AdvReac Type Severity Reaction Status Date / Time No Known Allergies Allergy Verified 04/21/19 17:04 Home Medications Medication Instructions Recorded Confirmed Last Taken Type No Known Home Medications [No 04/21/19 04/21/19 Unknown History Reported Home Medications] Active Meds: Active Medications Acetaminophen (Tylenol) 650 mg PO Q4H PRN PRN Reason: Pain MILD(1-3)/Fever >100.5/VELEZ Last Admin: 04/22/19 09:49 Dose: 650 mg Documented by: Albuterol (Proventil) 2.5 mg IH Q3HRT PRN PRN Reason: Shortness Of Breath Sodium Chloride (Nacl 0.9% 1000 Ml) 1,000 mls @ 42 mls/hr IV DIRECT [facility] Last Admin: 04/22/19 01:03 Dose: 42 mls/hr Documented by: Morphine Sulfate (Morphine) 2 mg IV Q4H PRN PRN Reason: Pain, Moderate (4-6) Ondansetron HCl (Zofran) 4 mg IV Q8H PRN PRN Reason: Nausea And Vomiting Pantoprazole Sodium (Protonix) 40 mg IV BID [facility] Last Admin: 04/22/19 09:23 Dose: 40 mg Documented by: Sodium Chloride (Sodium Chloride Flush Syringe 10 Ml) 10 ml IV BID [facility] Last Admin: 04/22/19 09:24 Dose: 10 ml Documented by: Sodium Chloride (Sodium Chloride Flush Syringe 10 Ml) 10 ml IV PRN PRN PRN Reason: LINE FLUSH Zolpidem Tartrate (Ambien) 5 mg PO QHS PRN PRN Reason: Insomnia Last Admin: 04/22/19 01:03 Dose: 5 mg Documented by: Physical Examination Vital Signs Temp Pulse Resp BP 98.2 F 102 H 20 180/112 04/21/19 17:03 04/21/19 17:03 04/21/19 17:03 04/21/19 17:03 General appearance: no acute distress HEENT: Positive: PERRL Neck: Positive: trachea midline Cardiac: Positive: Reg Rate and Rhythm Neuro: Positive: Grossly Intact Extremities: Absent: edema Results 04/22/19 06:24 04/21/19 17:07 Coagulation 04/21/19 Range/Units 18:20 PT 14.3 (12.2-14.9) Sec. INR 1.05 (0.87-1.13) APTT 30.5 (24.2-36.6) Sec. CBC 04/21/19 04/22/19 Range/Units 17:07 06:24 WBC 9.3 (4.5-11.0) K/mm3 RBC 4.80 (3.65-5.03) M/mm3 Hgb 14.1 12.9 (11.8-15.2) gm/dl Hct 43.0 38.5 (35.5-45.6) % Plt Count 335 (140-440) K/mm3 Lymph # 3.3 (1.2-5.4) K/mm3 [place] # 1.1 H (0.0-0.8) K/mm3 Eos # 0.5 H (0.0-0.4) K/mm3 Baso # 0.1 (0.0-0.1) K/mm3 Comprehensive Metabolic Panel 04/21/19 Range/Units 17:07 Sodium 139 (137-145) mmol/L Potassium 4.1 (3.6-5.0) mmol/L Chloride 100.3 (98-107) mmol/L Carbon Dioxide 24 (22-30) mmol/L BUN 9 (9-20) mg/dL Creatinine 0.7 L (0.8-1.5) mg/dL Glucose 138 H (75-100) mg/dL Calcium 10.1 (8.4-10.2) mg/dL Assessment and Plan Shortness of breath with hemoptysis Chest pain, musculoskeletal Hx of Ischemic CMP, EF 25-30% Hx of CAD with CABG 01/2019 Hypertension Tobacco abuse Noncompliant with medical therapy and outpatient cardiac f/u
--- NOTE | 2019-04-22 13:30 | Consultation ---
History of Present Illness - Reason for Consult Consult date: 04/22/19 Right lung lesion. TB evaluation Requesting physician: MARTHA BOWEN - History of Present Illness This patient is a 58-year-old male with a past medical history of CABG X4 in January, Cardiac Stent, hypertension, Ischemic cardiomyopathy with EF of 25-30% and tobacco abuse who presents to the ED on 04/21/19 with complaints of chest pain and hemoptysis. Patient admits to being noncompliant with his medication for the last 6-8 weeks, however he continues to take aspirin 81mg daily. He reports that for e last week he has had intermittent chest pain and several episodes of hemoptysis since yesterday. On admission WBC 9.3, Creatine 0.7, Troponin < 0.010, Temperature 98.2, HR 102, BP 180/112. Chest xray shows calcified granulomas suspected in the right upper lung field. . No dense consolidation are seen. Chest CT shows a right small pleural effusion. Patient reports 1 incidence of hemoptysis with associated chest pain at home, He denies fevers, chills, night sweats, weight loss or travel outside of the country. He has been incarcerated between [id number], but states he has tested negative for TB during this time period. He is positive for Hep C, but has teste d negative for HIV in the last 3 months. He denies alcohol abuse, but has a history of Methamphetamine abuse prior to cardiac surgery in January,. He continues to abuse tobacco and smokes a pack of cigarettes a day. Review of Systems: General: no, fever, chills or nightsweats, unintentional weight change, or change in appetite Cutaneous: no rash, pruritus Head: no headaches or injury Eyes: no changes in vision, eye pain, double vision Ears: no ear pain, ear discharge, ringing or hearing loss Nose: no nose bleeding, stuffiness Mouth & throat: no bleeding gums, no horseness, no dental problems, or swollen glands Neck: no pain, node enlargement/lumps, tyroid enlargement or tenderness Respiratory: no cough, wheezing, sputum, + hemoptysis and pleuritic chest pain.for one day, now resolved. Cardiovascular: no chest pain, leg edema, cyanosis, MAJOR, orthopnea Musculoskeletal: no decreased joint motion, bone or joint pain, joint swelling, muscle aches Gastrointestinal: no nausea, vomiting, hematemesis, diarrhea, constipation, melena, bright red blood in stools, fecal incontinence, jaundice Genitourinary/Reproductive: no frequent urination, no dysuria, hematuria, incontinence Neurogical: no seizures, no headaches, no weakness, no paresthesias, no loss of speech or vision; no memory loss, no vertigo, no tremors, no numbness Psychiatric: stable mood; no excessive anxiety, sadness or moodiness Past History Past Medical History: CAD Past Surgical History: CABG Social history: single, smoking Family history: no significant family history Medications and Allergies Allergies Allergy/AdvReac Type Severity Reaction Status Date / Time No Known Allergies Allergy Verified 04/21/19 17:04 Home Medications Medication Instructions Recorded Confirmed Last Taken Type Aspirin [Aspirin BABY CHEW TAB] 81 mg PO QDAY 04/22/19 04/22/19 03/22/19 09:00 History Coreg 3.125 mg PO BID 04/22/19 04/22/19 03/22/19 09:00 History Lipitor 40 mg PO DAILY 04/22/19 04/22/19 03/22/19 21:00 History Lisinopril 2.5 mg PO DAILY 04/22/19 04/22/19 03/22/19 History 0900 Plavix 75 mg PO DAILY 04/22/19 04/22/19 03/22/19 History 0900 clonazePAM 0.5 mg PO BID 04/22/19 04/22/19 03/22/19 09:00 History traMADol 50 mg PO Q6HR 04/22/19 04/22/19 Unknown History Active Meds: Active Medications Acetaminophen (Tylenol) 650 mg PO Q4H PRN PRN Reason: Pain MILD(1-3)/Fever >100.5/VELEZ Last Admin: 04/22/19 09:49 Dose: 650 mg Documented by: Albuterol (Proventil) 2.5 mg IH Q3HRT PRN PRN Reason: Shortness Of Breath Sodium Chloride (Nacl 0.9% 1000 Ml) 1,000 mls @ 42 mls/hr IV DIRECT [facility] Last Admin: 04/22/19 01:03 Dose: 42 mls/hr Documented by: Morphine Sulfate (Morphine) 2 mg IV Q4H PRN PRN Reason: Pain, Moderate (4-6) Ondansetron HCl (Zofran) 4 mg IV Q8H PRN PRN Reason: Nausea And Vomiting Pantoprazole Sodium (Protonix) 40 mg IV BID [facility] Last Admin: 04/22/19 09:23 Dose: 40 mg Documented by: Sodium Chloride (Sodium Chloride Flush Syringe 10 Ml) 10 ml IV BID [facility] Last Admin: 04/22/19 09:24 Dose: 10 ml Documented by: Sodium Chloride (Sodium Chloride Flush Syringe 10 Ml) 10 ml IV PRN PRN PRN Reason: LINE FLUSH Zolpidem Tartrate (Ambien) 5 mg PO QHS PRN PRN Reason: Insomnia Last Admin: 04/22/19 01:03 Dose: 5 mg Documented by: Physical Examination - Physical Exam Narrative exam: Constitutional: Alert, cooperative. No acute distress Head, Ears, Nose: Normocephalic, atraumatic. External ears, nose normal Eyes: Conjunctivae/corneas clear. No icterus. No ptosis. Neck: Supple, no meningeal signs Oral: dentition poor. no thrush. Cardiovascular: S1, S2 normal. Respiratory: Good air entry, clear to auscultation bilaterally GI: Soft, non-tender; bowel sounds normal. No peritoneal signs Musculoskeletal: No pedal edema, no cyanosis. Skin: No rash or abscess. Hem/Lymphatic: No palpable cervical or supraclavicular nodes. No lymphangitis Psych: Mood ok. Affect normal Neurological: Awake, alert, oriented. - Constitutional Vitals: Vital Signs Temp Pulse Resp BP Pulse Ox 97.7 F 90 18 140/89 95 04/22/19 12:17 04/22/19 04:42 04/22/19 12:17 04/22/19 12:17 04/22/19 04:42 Temperature -Last 24 Hours Temperature 97.7 F Temperature 97.6 F Temperature 98.4 F Temperature 98.4 F Temperature 98.1 F Temperature 98.2 F Results - Labs CBC & Chem 7: 04/22/19 15:21 04/21/19 17:07 Labs: Abnormal lab results 04/21/19 04/21/19 Range/Units 17:07 17:07 RDW 18.6 H (13.2-15.2) % Lymph % (Auto) 35.7 H (13.4-35.0) % [place] % (Auto) 11.9 H (0.0-7.3) % Eos % (Auto) 4.9 H (0.0-4.3) % [place] # 1.1 H (0.0-0.8) K/mm3 Eos # 0.5 H (0.0-0.4) K/mm3 Creatinine 0.7 L (0.8-1.5) mg/dL Glucose 138 H (75-100) mg/dL - Imaging and Cardiology Chest x-ray: report reviewed ( calcified granulomas suspected in the right upper lung field. . No dense consolidation are seen) CT scan - chest: report reviewed ( Right small pleural effusion. Mild COPD. ) Assessment and Plan Cultures: No blood Cultures drawn A/P: 58-year-old male with a past medical history of CABG X4 in January, Cardiac Stent, hypertension, Ischemic cardiomyopathy with EF of 25-30% and tobacco abuse who presents to the ED on 04/21/19 with complaints of chest pain and hemoptysis. Patient admits to being noncompliant with his medication for the last 6-8 weeks, however he continues to take aspirin 81mg daily. Admitted with: 1. Right upper lobe calcified granuloma: CXR shows suspected granulomas in the right upper lung field, Chest CT shows right small pleural effusion. Patient reports no recent travel outside of the country, no fever, chills or recent weight loss. He was incarcerated between the years of [id number] , with negative PPD's. Very low suspicion for TB. Will take off of airborne isolation and continue to monitor closely. 2. Acute Hemoptysis: Reports one incident with associated chest pain at home. Now resolved. 3. Tobacco abuse: discussion regarding smoking cessation. 4. CAD status post CABG: January 2019. Non-compliant with medication regimen. 5. Hep C positive: Plan: - Follow-up AFB smear X 3 -No fever , no leukocytosis - Antimicrobial treatment not required at this time, -Continue to monitor closely -Discontinue Airborne Isolation we will follow D/W Dr. Marco Pang, [facility] M: [phone] O:[phone]
--- NOTE | 2019-04-22 13:59 | Consultation ---
History of Present Illness Consult date: 04/22/19 Reason for consult: dyspnea, cough, chest pain History of present illness: PULMONARY AND CRITICAL CARE CONSULTATION THANK YOU FOR ASKING ME TO PARTICIPATE IN THE CARE OF THIS PATIENT. Pt is a 58-year-old male with PMHx of CABG 4 in January, cardiac stent, hypertension, CHF, ischemic cardiomyopathy (EF of 25-30%), current every day tobacco use disorder, who presents to the ER with complaints of chest pain and coughing of blood (denies vomiting blood). Patient had CABG in January. Please continue with multiple systems disease, he was transferred to [place] for urgent revascularization surgery. Patient complained of chest pain with deep breathing and coughing, Complaints hemoptysis, he denies taking any anticoagulant, he was prescribed plavix at discharge but states that he had not brought the medications for 6-8 weeks. States he has not followed up with cardiology, he denies any bruising or ecchymosis, he denies fevers, denies chills, denies night sweats, denies cough, denied exposure to large crowd, denies recent travel patient is a CT scan of the chest which was negative . Patient has episode of hemoptysis few days ago. Patient in non compliant with his medications. Patient has history of smoking 1 pack x 25 years. Denies alcohol or drug abuse. No known drug allergies. 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 Patient resting on room air at this time. O2 saturation 95%. No Hemoptysis, no fever, no chills or night sweats. Past History Past Medical History: CAD Past Surgical History: CABG Social history: single, smoking Family history: no significant family history Medications and Allergies Allergies Allergy/AdvReac Type Severity Reaction Status Date / Time No Known Allergies Allergy Verified 04/21/19 17:04 Home Medications Medication Instructions Recorded Confirmed Last Taken Type Aspirin [Aspirin BABY CHEW TAB] 81 mg PO QDAY 04/22/19 04/22/19 03/22/19 09:00 History Coreg 3.125 mg PO BID 04/22/19 04/22/19 03/22/19 09:00 History Lipitor 40 mg PO DAILY 04/22/19 04/22/19 03/22/19 21:00 History Lisinopril 2.5 mg PO DAILY 04/22/19 04/22/19 03/22/19 History 0900 Plavix 75 mg PO DAILY 04/22/19 04/22/19 03/22/19 History 899 clonazePAM 0.5 mg PO BID 04/22/19 04/22/19 03/22/19 09:00 History traMADol 50 mg PO Q6HR 04/22/19 04/22/19 Unknown History Active Meds: Active Medications Acetaminophen (Tylenol) 650 mg PO Q4H PRN PRN Reason: Pain MILD(1-3)/Fever >100.5/VELEZ Last Admin: 04/22/19 09:49 Dose: 650 mg Documented by: Albuterol (Proventil) 2.5 mg IH Q3HRT PRN PRN Reason: Shortness Of Breath Sodium Chloride (Nacl 0.9% 1000 Ml) 1,000 mls @ 42 mls/hr IV DIRECT [facility] Last Admin: 04/22/19 01:03 Dose: 42 mls/hr Documented by: Morphine Sulfate (Morphine) 2 mg IV Q4H PRN PRN Reason: Pain, Moderate (4-6) Ondansetron HCl (Zofran) 4 mg IV Q8H PRN PRN Reason: Nausea And Vomiting Pantoprazole Sodium (Protonix) 40 mg IV BID [facility] Last Admin: 04/22/19 09:23 Dose: 40 mg Documented by: Sodium Chloride (Sodium Chloride Flush Syringe 10 Ml) 10 ml IV BID [facility] Last Admin: 04/22/19 09:24 Dose: 10 ml Documented by: Sodium Chloride (Sodium Chloride Flush Syringe 10 Ml) 10 ml IV PRN PRN PRN Reason: LINE FLUSH Zolpidem Tartrate (Ambien) 5 mg PO QHS PRN PRN Reason: Insomnia Last Admin: 04/22/19 01:03 Dose: 5 mg Documented by: Review of Systems All systems: negative Physical Examination Vital signs: Vital Signs Temp Pulse Resp BP 98.2 F 102 H 20 180/112 04/21/19 17:03 04/21/19 17:03 04/21/19 17:03 04/21/19 17:03 General appearance: no acute distress, alert Eyes: non-icteric ENT: oropharynx moist Neck: supple, no JVD Ascultation: Bilateral: diminished breath sounds, other (Prolonged expiratory phase.) Cardiovascular: regular rate and rhythm Gastrointestinal: normoactive bowel sounds, soft, non-tender Integumentary: normal Extremities: no cyanosis, no edema Musculoskeletal: no deformities Gait: other (Presently resting in bed.) normal mental status, non-focal exam, pupils equal and round, CN II-XII normal mood appropriate Results - Laboratory Findings CBC and BMP: 04/22/19 06:24 04/21/19 17:07 PT/INR, D-dimer PT 14.3 Sec. (12.2-14.9) 04/21/19 18:20 INR 1.05 (0.87-1.13) 04/21/19 18:20 Abnormal lab findings: Abnormal Labs 04/21/19 04/21/19 17:07 17:07 RDW 18.6 H Lymph % (Auto) 35.7 H [place] % (Auto) 11.9 H Eos % (Auto) 4.9 H [place] # 1.1 H Eos # 0.5 H Creatinine 0.7 L Glucose 138 H - Diagnostic Findings Chest x-ray: report reviewed, image reviewed CT scan - chest: report reviewed (No CT evidence of Pulmonary embolism.), image reviewed Additional studies: CHEST XRAY DONE ON 04/21/19 IMPRESSION: Interval thoracotomy. Prior granulomatous disease. Minimal blunting lateral costophrenic angles as described above. Lungs otherwise are clear.. ANGIO CT OF CHEST done on 04/21/[address] evidence of pulmonary embolism. Assessment and Plan Pt is a 58-year-old male with PMHx of CABG 4 in January, cardiac stent, hypertension, CHF, ischemic cardiomyopathy (EF of 25-30%), current every day tobacco use disorder, who presents to the ER with complaints of chest pain and coughing of blood (denies vomiting blood). Patient had CABG in January. Please continue with multiple systems disease, he was transferred to [place] for urgent revascularization surgery. Patient complained of chest pain with deep breathing and coughing, Complaints hemoptysis, he denies taking any anticoagulant, he was prescribed plavix at discharge but states that he had not brought the medications for 6-8 weeks. States he has not followed up with cardiology, he denies any bruising or ecchymosis, he denies fevers, denies chills, denies night sweats, denies cough, denied exposure to large crowd, denies recent travel patient is a CT scan of the chest which was negative . Pa tient has episode of hemoptysis few days ago. Patient in non compliant with his medications. Patient has history of smoking 1 pack x 25 years. Denies alcohol or drug abuse. No known drug allergies. 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 Patient resting on room air at this time. O2 saturation 95%. No Hemoptysis, no fever, no chills or night sweats. - Patient Problems (1) Chest pain Current Visit: Yes Status: Acute Plan to address problem: Management as per primary care and cardiology. (2) H/O heart artery stent Current Visit: Yes Status: Acute Plan to address problem: Management as per primary care and cardiology. (3) HTN (hypertension) Current Visit: Yes Status: Acute Plan to address problem: Management as per primary care. (4) S/P CABG x 4 Current Visit: Yes Status: Acute Plan to address problem: Management as per cardiology. (5) Tobacco dependence Current Visit: Yes Status: Chronic Plan to address problem: Counselled to stop smoking. PFTs as out patient. Albuterol inhaler 2 puffs po qid prn for shortness of breath and cough.
[2019-04-22 15:55] LABS: Hematocrit 38.4 % (35.5-45.6); Hemoglobin 12.7 gm/dl (11.8-15.2)
--- NOTE | 2019-04-22 23:35 | Progress Note ---
Assessment and Plan Assessment and plan: Pt is a 58-year-old male with PMHx of CABG 4 in January, cardiac stent, hypertension, CHF, ischemic cardiomyopathy (EF of 25-30%), current every day tobacco use disorder, who presents to the ER with complaints of chest pain and coughing of blood (denies vomiting blood). Patient had CABG in January. Please continue with multiple systems disease, he was transferred to [place] for urgent revascularization surgery. Patient complained of chest pain with deep breathing and coughing, Complaints hemoptysis, he denies taking any anticoagulant, he was prescribed plavix at discharge but states that he had not brought the medications for 6-8 weeks. States he has not followed up with cardiology, he denies any bruising or ecchymosis, he denies fevers, denies chills, denies night sweats, denies cough, denied exposure to large crowd, denies recent travel patient is a CT scan of the chest which was negative he was admitted for further management. 1. Acute hemoptysis 2. Small pleural effusion 3. COPD 4. Tobacco use disorder 5. Right upper lobe calcified granuloma (r/o TB) 6. CAD status post CABG 7. Hyperlipidemia 8. Hypertension 9. Noncompliant with medical treatment Plan: Continue supportive care. Hemoptysis was discontinued. Awaiting ID Cardiology consult AFB 3 to r/o TB Place PPD now H&H every 8 hours 3 Further plan per hospital course DVT and GI prophylaxis History Interval history: Patient is examined in no acute distress resting comfortably. He reports some cough still persists. Nonproductive at this time. Hospitalist Physical - Physical exam Narrative exam: VITAL SIGNS: Reviewed. GENERAL: The patient appeared well nourished and normally developed, Vital sign s as documented. HEAD: No signs of head trauma. EYES: Pupils are equal. Extraocular motions intact. EARS: Hearing grossly intact. MOUTH: Oropharynx is normal. NECK: No adenopathy, no JVD. CHEST: Chest with clear breath sounds bilaterally. No wheezes, rales, or rhonchi. CARDIAC: Regular rate and rhythm. S1 and S2, without murmurs, gallops, or rubs. VASCULAR: No Edema. Peripheral pulses normal and equal in all extremities. ABDOMEN: Soft, non tender and non distended. No rebound or guarding, and no masses palpated. Bowel Sounds normal. MUSCULOSKELETAL: Good range of motion of all major joints. Extremities without clubbing, cyanosis or edema. NEUROLOGIC EXAM: Alert and oriented x 3 No focal sensory or strength deficits. Speech normal. Follows commands. PSYCHIATRIC: Mood normal. SKIN: No rash or lesions. - Constitutional Vitals: Temp Pulse Resp BP Pulse Ox 98.1 F 83 16 145/100 96 04/22/19 19:25 04/22/19 19:25 04/22/19 19:25 04/22/19 19:25 04/22/19 19:25 General appearance: Present: no acute distress Results - Labs CBC & Chem 7: 04/22/19 15:21 04/21/19 17:07 Labs: Laboratory Last Values WBC 9.3 K/mm3 (4.5-11.0) 04/21/19 17:07 RBC 4.80 M/mm3 (3.65-5.03) 04/21/19 17:07 Hgb 12.7 gm/dl (11.8-15.2) 04/22/19 15:21 Hct 38.4 % (35.5-45.6) 04/22/19 15:21 MCV 90 fl (84-94) 04/21/19 17:07 MCH 29 pg (28-32) 04/21/19 17:07 MCHC 33 % (32-34) 04/21/19 17:07 RDW 18.6 % (13.2-15.2) H 04/21/19 17:07 Plt Count 335 K/mm3 (140-440) 04/21/19 17:07 Lymph % (Auto) 35.7 % (13.4-35.0) H 04/21/19 17:07 [place] % (Auto) 11.9 % (0.0-7.3) H 04/21/19 17:07 Eos % (Auto) 4.9 % (0.0-4.3) H 04/21/19 17:07 Baso % (Auto) 0.9 % (0.0-1.8) 04/21/19 17:07 Lymph # 3.3 K/mm3 (1.2-5.4) 04/21/19 17:07 [place] # 1.1 K/mm3 (0.0-0.8) H 04/21/19 17:07 Eos # 0.5 K/mm3 (0.0-0.4) H 04/21/19 17:07 Baso # 0.1 K/mm3 (0.0-0.1) 04/21/19 17:07 Seg Neutrophils % 46.6 % (40.0-70.0) 04/21/19 17:07 Seg Neutrophils # 4.4 K/mm3 (1.8-7.7) 04/21/19 17:07 PT 14.3 Sec. (12.2-14.9) 04/21/19 18:20 INR 1.05 (0.87-1.13) 04/21/19 18:20 APTT 30.5 Sec. (24.2-36.6) 04/21/19 18:20 Sodium 139 mmol/L (137-145) 04/21/19 17:07 Potassium 4.1 mmol/L (3.6-5.0) 04/21/19 17:07 Chloride 100.3 mmol/L (98-107) 04/21/19 17:07 Carbon Dioxide 24 mmol/L (22-30) 04/21/19 17:07 19 mmol/L 04/21/19 17:07 BUN 9 mg/dL (9-20) 04/21/19 17:07 0.7 mg/dL (0.8-1.5) L 04/21/19 17:07 Estimated GFR > 60 ml/min 04/21/19 17:07 13 % 04/21/19 17:07 Glucose 138 mg/dL (75-100) H 04/21/19 17:07 Calcium 10.1 mg/dL (8.4-10.2) 04/21/19 17:07 < 0.010 ng/mL (0.00-0.029) 04/21/19 23:04 Active Medications - Current Medications Current Medications: Generic Name Dose Route Start Last Admin Trade Name Freq PRN Reason Stop Dose Admin Acetaminophen 650 mg 04/21/19 21:08 04/22/19 09:49 Tylenol PO 650 mg Q4H PRN Administration Pain MILD(1-3)/Fever >100.5/VELEZ Albuterol 2.5 mg 04/21/19 21:08 Proventil IH Q3HRT PRN Shortness Of Breath Sodium Chloride 1,000 mls @ 42 mls/hr 04/21/19 22:00 04/22/19 01:03 Nacl 0.9% 1000 Ml IV 42 mls/hr DIRECT DONOVAN Administration Morphine Sulfate 2 mg 04/21/19 21:08 Morphine IV Q4H PRN Pain, Moderate (4-6) Ondansetron HCl 4 mg 04/21/19 21:08 Zofran IV Q8H PRN Nausea And Vomiting Pantoprazole Sodium 40 mg 04/22/19 10:00 04/22/19 09:23 Protonix IV 40 mg BID DONOVAN Administration Sodium Chloride 10 ml 04/21/19 22:00 04/22/19 09:24 Sodium Chloride Flush Syringe 10 Ml IV 10 ml BID DONOVAN Administration Sodium Chloride 10 ml 04/21/19 21:08 Sodium Chloride Flush Syringe 10 Ml IV PRN PRN LINE FLUSH Zolpidem Tartrate 5 mg 04/21/19 21:08 04/22/19 01:03 Ambien PO 5 mg QHS PRN Administration Insomnia
[2019-04-23] MEDS: PROTONIX IV SCH ×2 (01:37→09:28)
[2019-04-23] MEDS: SODIUM CHLORIDE FLUSH SYRINGE 10 ML IV SCH ×2 (01:37→09:29)
[2019-04-23] MEDS: COREG PO SCH ×2 (03:17→09:28)
[2019-04-23] MEDS: NACL 0.9% 1000 ML 1,000 ML IV SCH (03:18)
--- NOTE | 2019-04-23 09:50 | Progress Note ---
Assessment and Plan Shortness of breath with hemoptysis Chest pain, musculoskeletal Hx of Ischemic CMP, EF 25-30% Hx of CAD with 5v CABG 01/2019 Hypertension Tobacco abuse Noncompliant with medical therapy and outpatient cardiac f/u Recommendations: Advised smoking cessation. No further cardiac ischemic workup is indicated for what appears to be musculoskeletal chest wall pain. Continue medical therapy for coronary artery disease and ischemic cardiomyopathy. Once discharged, patient will f/u with [facility] May 09 at 230p. Subjective Date of service: 04/23/19 Interval history: Patient denies chest pain and shortness of breath. Objective Vital Signs Temp Pulse Resp BP Pulse Ox 04/23/19 08:10 97.2 F L 77 16 155/102 96 04/23/19 04:10 98.0 F 75 18 154/108 97 04/23/19 03:17 80 164/106 04/22/19 23:22 98.6 F 82 18 164/106 95 04/22/19 23:00 85 04/22/19 19:25 98.1 F 83 16 145/100 96 04/22/19 16:22 97.6 F 18 149/96 04/22/19 12:17 97.7 F 18 140/89 - Physical Examination General: No Apparent Distress HEENT: Positive: PERRL Neck: Positive: trachea midline Cardiac: Positive: Reg Rate and Rhythm Lungs: Positive: Decreased Breath Sounds Neuro: Positive: Grossly Intact Extremities: Absent: edema - Labs and Meds CBC 04/22/19 Range/Units 15:21 Hgb 12.7 (11.8-15.2) gm/dl Hct 38.4 (35.5-45.6) %
[2019-04-23] MEDS ORDERED: ZESTRIL PO SCH (10:00)
--- NOTE | 2019-04-23 10:34 | Progress Note ---
Assessment and Plan Cultures: No blood Cultures drawn A/P: 58-year-old male with a past medical history of CABG X4 in January, Cardiac Stent, hypertension, Ischemic cardiomyopathy with EF of 25-30% and tobacco abuse who presents to the ED on 04/21/19 with complaints of chest pain and hemoptysis. Patient admits to being noncompliant with his medication for the last 6-8 weeks, however he continues to take aspirin 81mg daily. Admitted with: 1. Right upper lobe calcified granuloma: CXR shows suspected granulomas in the right upper lung field, Chest CT shows right small pleural effusion. Patient reports no recent travel outside of the country, no fever, chills or recent weight loss. He was incarcerated between the years of 2912-3104 , with negative PPD's. Very low suspicion for TB.. 2. Acute Hemoptysis: Reports one incident with associated chest pain at home. Now resolved. 3. Tobacco abuse: discussion regarding smoking cessation. 4. CAD status post CABG: January 2019. Non-compliant with medication regimen. 5. Hep C positive: Plan: Clinically stable, Ok to discharge from ID standpoint. d/w Dr. Arguello and Dr. Lara. Stephanie Pang NP [facility] M: [phone] O:[phone] Subjective Date of service: 04/23/19 Interval history: Patient seen and examined. Sitting up on the side of the bed. No generalized pain, weakness, SOB or cough reported. No fevers Objective - Exam Narrative Exam: Constitutional: Alert, cooperative. No acute distress Head, Ears, Nose: Normocephalic, atraumatic. External ears, nose normal Eyes: Conjunctivae/corneas clear. No icterus. No ptosis. Neck: Supple, no meningeal signs Oral: dentition poor. no thrush. Cardiovascular: S1, S2 normal. Respiratory: Good air entry, clear to auscultation bilaterally GI: Soft, non-tender; bowel sounds normal. No peritoneal signs Musculoskeletal: No pedal edema, no cyanosis. Skin: No rash or abscess. Hem/Lymphatic: No palpable cervical or supraclavicular nodes. No lymphangitis Psych: Mood ok. Affect normal Neurological: Awake, alert, oriented. - Constitutional Vitals: Vital Signs Temp Pulse Resp BP Pulse Ox 97.2 F L 77 16 155/102 96 04/23/19 08:10 04/23/19 08:10 04/23/19 08:10 04/23/19 08:10 04/23/19 08:10 Temperature -Last 24 Hours Temperature 97.2 F Temperature 98.0 F Temperature 98.6 F Temperature 98.1 F Temperature 97.6 F Temperature 97.7 F - Labs CBC & Chem 7: 04/22/19 15:21 04/21/19 17:07
--- NOTE | 2019-04-23 11:49 | Discharge Summary ---
Providers - Providers Date of Admission: 04/21/19 21:09 Attending physician: MARTHA BOWEN MD 04/21/19 22:51 Consult to Physician [CONS] Routine Comment: Consulting Provider: HALI RANKIN Physician Instructions: Reason For Exam: chest pain, recent CABG 04/21/19 22:57 Consult to Physician [CONS] Routine Comment: Consulting Provider: ERWIN MONET Physician Instructions: Reason For Exam: Hemoptisis 04/22/19 05:34 Consult to Physician [CONS] Routine Comment: Consulting Provider: EZIO YI Physician Instructions: Reason For Exam: right lung lesion ?TB [facility] Reason for admission: hymoptysis Condition: Stable Hospital course: Pt is a 58-year-old male with PMHx of CABG 4 in January, cardiac stent, hypertension, CHF, ischemic cardiomyopathy (EF of 25-30%), current every day tobacco use disorder, who presents to the ER with complaints of chest pain and coughing of blood (denies vomiting blood). Patient had CABG in January. Please continue with multiple systems disease, he was transferred to [place] for urgent revascularization surgery. Patient complained of chest pain with deep breathing and coughing, Complaints hemoptysis, he denies taking any anticoagulant, he was prescribed plavix at discharge but states that he had not brought the medications for 6-8 weeks. States he has not followed up with cardiology, he denies any bruising or ecchymosis, he denies fevers, denies chills, denies night sweats, denies cough, denied exposure to large crowd, denies recent travel patient is a CT scan of the chest which was negative he was admitted for further management. On admission patient was by cardiology discussed extensively with the patient to be compliant also tobacco cessation counseling was provided for about 15 minutes. Patient verbalized understanding. Infectious disease was consulted and reviewed x-ray. Patient has had a history of incarceration between the years of 2008 15 with negative PPD will suspicion for this TB. Considering hemoptysis S stopped and cardiology recommended patient resume all his prior recommended medications which new prescriptions were provided as recommended patient could be discharged on follow-up patient with appropriate testing. He is stable for discharge at this time. ID will follow with [facility] cOLLECTED 1. Right upper lobe calcified granuloma: 2. Acute Hemoptysis: Resolved 3. Tobacco abuse 4. CAD status post CAB. Hep C positive: 6 Small pleural effusion 7. COPD 8. Hyperlipidemia 9. Hypertension 10. Noncompliant with medical treatment Disposition: DC-01 TO HOME OR SELFCARE Time spent for discharge: 35 mins Core Measure Documentation - Palliative Care Palliative Care/ Comfort Measures: Not Applicable - Core Measures Any of the following diagnoses?: none Exam - Physical Exam Narrative exam: VITAL SIGNS: Reviewed. GENERAL: The patient appeared well nourished and normally developed, Vital signs as documented. HEAD: No signs of head trauma. EYES: Pupils are equal. Extraocular motions intact. EARS: Hearing grossly intact. MOUTH: Oropharynx is normal. NECK: No adenopathy, no JVD. CHEST: Chest with clear breath sounds bilaterally. No wheezes, rales, or rhonchi. CARDIAC: Regular rate and rhythm. S1 and S2, without murmurs, gallops, or rubs. VASCULAR: No Edema. Peripheral pulses normal and equal in all extremities. ABDOMEN: Soft, non tender and non distended. No rebound or guarding, and no masses palpated. Bowel Sounds normal. MUSCULOSKELETAL: Good range of motion of all major joints. Extremities without clubbing, cyanosis or edema. NEUROLOGIC EXAM: Alert and oriented x 3 No focal sensory or strength deficits. Speech normal. Follows commands. PSYCHIATRIC: Mood normal. SKIN: No rash or lesions. - Constitutional Vitals: Temp Pulse Resp BP Pulse Ox 97.2 F L 77 16 155/102 96 04/23/19 08:10 04/23/19 08:10 04/23/19 08:10 04/23/19 08:10 04/23/19 08:10 Plan Activity: advance as tolerated, fall precautions Diet: low fat Special Instructions: record daily weights, record daily BP diary, smoking cessation Follow up with: JENNIFER TALBOT MD [Staff Physician] - 7 Days ELVERTA AUGIE ALBERT MD [Primary Care Provider] - 7 Days FAISAL MC MD [Staff Physician] - 7 Days Prescriptions: Aspirin [Aspirin BABY CHEW TAB] 81 mg PO QDAY #30 tab.chew clonazePAM 0.5 mg PO BID #60 Coreg 3.125 mg PO BID #30 Lipitor 40 mg PO DAILY #30 Lisinopril 2.5 mg PO DAILY #30 Plavix 75 mg PO DAILY #30 ALBUTEROL Inhaler (OR & NICU) [ProAir HFA Inhaler] 2 puff IH QID PRN 30 Days inhalation PRN Reason: Shortness Of Breath
[2019-04-23 11:51] VITALS: BP 150/94
[2019-04-23] MEDS ORDERED: PROTONIX PO SCH (22:00)
== END 2019-04-23 13:00 | disposition home or self-care (01) | DRG 197 ==
LOC: ED 16:58 → 4A 21:09
PROVIDERS: ADMIT Internal Medicine; ATTEND Internal Medicine
DX: J84.10 Pulmonary fibrosis, unspecified (principal); J90 Pleural effusion, not elsewhere classified; R04.2 Hemoptysis; I11.0 Hypertensive heart disease with heart failure; I50.9 Heart failure, unspecified; I25.5 Ischemic cardiomyopathy; B19.20 Unspecified viral hepatitis C without hepatic coma; I25.10 Atherosclerotic heart disease of native coronary artery without angina pectoris; F44.9 Dissociative and conversion disorder, unspecified; E78.5 Hyperlipidemia, unspecified; J44.9 Chronic obstructive pulmonary disease, unspecified; F17.210 Nicotine dependence, cigarettes, uncomplicated; Z95.5 Presence of coronary angioplasty implant and graft; Z91.14 Patient's other noncompliance with medication regimen; Z95.1 Presence of aortocoronary bypass graft; Z71.6 Tobacco abuse counseling; Z79.899 Other long term (current) drug therapy; Z79.82 Long term (current) use of aspirin; I25.2 Old myocardial infarction; Z90.49 Acquired absence of other specified parts of digestive tract
CPT/HCPCS: 36415; 71045; 71275; 80048; 84484; 85014; 85018; 85025; 85610; 85730; 93005; 93010; 96374; 99406; G0378; C9113; J7030; Q9967